=== PATIENT | male | born 1970 | race Caucasian/White ===

== ENCOUNTER 2020-09-02 00:07 | Observation (INO) | payer BC, SELFPAY ==
[2020-09-02 00:05] VITALS: BP 124/69; PULSE 95; RESP 18; TEMP 37.2; O2SAT 96
--- NOTE | 2020-09-02 00:27 | PC.NURSE ---
this pt called jose g from [facility] hospice. she states that they don't have any inpatient contracts with any facility around here. they state since doctor is interested in admitting pt, they would have to d/c pt from hospice. notified.
[2020-09-02 00:44] VITALS: BP 127/77; PULSE 75; RESP 18; O2SAT 95
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
[2020-09-02 02:21] VITALS: BP 110/64; PULSE 58; RESP 12; O2SAT 94
[2020-09-02 02:40] VITALS: BP 126/67; PULSE 66; RESP 18; TEMP 36.6; O2SAT 100
[2020-09-02] MEDS: WATER, STERILE FOR INJECTION 10 ML VIAL XX (05:06)
[2020-09-02] MEDS: OLANZapine 10 MG INJ VIAL IM (05:06)
[2020-09-02] MEDS: LORazepam INJ (*CRX) 2 MG/ML VIAL IV PUSH ×2 (05:30→17:58)
[2020-09-02] MEDS: MORPHINE SULFATE ORAL CONC SOL (*CRX) 10 MG/0.5 ML SYRINGE 20 MG PO (05:33)
--- NOTE | 2020-09-02 06:04 | ADMGEN ---
This patient, Benitez Menjivar, was admitted to 2 Medical Room 241-01 @ 0235 09/02/2020. Patient/family oriented to hospital policies and general routines including ID bracelet, bed and alarms, visiting hours, pain management, procedures, bathroom and other care routines, personal items, smoking policy, room service/diet, and visiting hours. Information on how to activate the Rapid Response Team has been discussed. Patient/Family are encouraged to report perceived risks to care and to ask questions if they do not understand what they are told or what they should do.
--- NOTE | 2020-09-02 06:17 | PC.NURSE ---
0530 code purple called due to pt agitation, climbing out of bed, combative. orders to start IV access and give Ativan 2mg IVP
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
[2020-09-02 09:56] VITALS: O2SAT 96
--- NOTE | 2020-09-02 11:21 | PM.IMPN ---
Progress Note: A&P Assessment and Plan (1) Aggressive behavior: Code(s): R46.89 - Other symptoms and signs involving appearance and behavior Status: Acute Assessment and Plan: Likely due to pain, advance cancer and brain Mets -the patient is doing well after receiving 10 mg of Zyprexa IM as well as Ativan and pain medications -his fentanyl patch was increased to 100 mcg, oral Ativan increased to 2 mg, and his oxycodone was continued on admission -since he did well with the Zyprexa, I am going to add Haldol to his nightly regimen to help sustain a calm and comfortable mood -the patient's family would like to switch hospice companies. At 1st they thought about placement but said if we can get his mood and aggression under control, they would be happy to take him -will adjust medications as needed -await hospice recommendations (2) Colon cancer metastasized to multiple sites: Code(s): C18.9 - Malignant neoplasm of colon, unspecified Status: Acute Assessment and Plan: Chronic and on hospice (3) Encounter for palliative care: Code(s): Z51.5 - Encounter for palliative care Status: Acute Assessment and Plan: Adjusting medication Time Spent With Patient Time with patient: 25 - 35 minutes Subjective Date/time seen: 09/02/20 11:21 Interval history: Pt is a 49-year-old male here for metastatic colon cancer and agitation. Patient was seen this morning and he was resting comfortably. He would awaken easily but was somnolent and would go right back to sleep. He stated he was not in any pain. Review of Systems Review of Systems: All systems reviewed & are unremarkable except as noted in HPI and below Exam Narrative: Exam Narrative: General: Chronically ill underweight patient resting in bed in no acute distress HEENT: normocephalic Neck: supple Neuro: Alert but would not answer my orientation questions due to somnolence CV:RRR Resp:CTA Abd: Soft, non distended. No pain to palpation. Positive bowel sounds Extremities: No swelling, erythema, or pain to palpation. Objective Data Vital Signs Vital Signs: Vital Signs - 24 hr 09/02/20 00:05 09/02/20 00:44 09/02/20 02:21 Temperature 99.0 F Pulse Rate 95 75 58 L Respiratory Rate 18 18 12 Blood Pressure 124/69 127/77 110/64 Pulse Oximetry 96 95 94 09/02/20 02:40 09/02/20 09:56 Temperature 97.9 F Pulse Rate 66 Respiratory Rate 18 Blood Pressure 126/67 Pulse Oximetry 100 96 Intake/Output Intake/Output: Intake & Output 08/30/20 08/31/20 09/01/20 09/02/20 23:59 23:59 23:59 23:59 Intake Total 0 Balance 0 Meds/Results Medications: Active Medications Generic Name Dose Route Start Last Admin Trade Name Freq PRN Reason Stop Dose Admin Fentanyl 100 mcg 09/02/20 06:00 09/02/20 06:19 Fentanyl (*Crx) 100 Mcg Patch TRANSDERM 100 mcg Q72H TROY Administration Haloperidol 5 mg 09/02/20 21:00 Haloperidol 5 Mg Tablet PO HS TROY Lorazepam 2 mg 09/02/20 05:44 09/02/20 05:30 Lorazepam Inj (*Crx) 2 Mg/Ml Vial IV PUSH 2 mg Q1HR PRN Administration Agitation Lorazepam 2 mg 09/02/20 09:00 Lorazepam (*Crx) 1 Mg Tablet PO QID TROY Morphine Sulfate 20 mg 09/02/20 04:22 09/02/20 05:33 Morphine Sulfate Oral Conc Tami (*Crx) 10 Mg/0.5 Ml Syringe PO 10/02/20 04:23 20 mg Q1HR PRN Administration Pain Rated 7-10 Olanzapine 5 mg 09/02/20 11:19 Olanzapine 10 Mg Inj Vial IM Q6H PRN Agitation Oxycodone HCl 60 mg 09/02/20 09:00 Oxycodone Hcl (*Crx) 20 Mg Tab Sr 12hr PO BID [facility] Quality VTE Prophylaxis VTE prophylaxis: mechanical ordered
[2020-09-02] MEDS: oxyCODONE HCL (*CRX) 20 MG TAB SR 12HR 60 MG PO (11:49)
[2020-09-02 13:48] VITALS: BP 102/58; PULSE 62; RESP 10; TEMP 36.4; O2SAT 97
[2020-09-02] MEDS: OLANZapine 10 MG INJ VIAL 5 MG IM (17:39)
--- NOTE | 2020-09-02 18:52 | PC.NURSE ---
Code purple called, medication given per OCT. notified.
--- NOTE | 2020-09-03 06:41 | PM.DS ---
DS: Admitting Diagnosis Admitting Diagnosis Admitting Diagnosis: uncontrolled agitation with terminal cancer DS: Discharge Diagnosis Discharge Diagnosis (1) Aggressive behavior: Code(s): R46.89 - Other symptoms and signs involving appearance and behavior Status: Acute Assessment and Plan: Likely due to pain, advance cancer and brain Mets -the patient did well after receiving 10 mg of Zyprexa IM as well as Ativan and pain medications earlier in the day -Later in the day he started having hallucinations and aggregation again -He qualified for inpatient hospice and was discharged to hospice. (2) Colon cancer metastasized to multiple sites: Code(s): C18.9 - Malignant neoplasm of colon, unspecified Status: Acute Assessment and Plan: Chronic and on hospice (3) Encounter for palliative care: Code(s): Z51.5 - Encounter for palliative care Status: Acute Assessment and Plan: Adjusting medication DS: Summary Hospital Course Hospital Course: Patient is a 49 year old male here for agitation and behavioral disturbances associated with terminal colon cancer who was admitted to the hospitalist service for medication adjustments who initially did well but then started being combative and hallucinating again. [facility] came and evaluated the patient and made him GIP status and going forward will facilitate care and will make further medication adjustments. Status at Discharge Overall status at discharge: patient is not back to baseline Time Spent with Patient Time attestation: Total time spent providing and/or coordinating discharge services:32 min Time spent: Greater than 30 minutes Exam Narrative: Exam Narrative: General: Chronically ill underweight patient resting in bed in no acute distress HEENT: normocephalic Neck: supple Neuro: Alert but would not answer my orientation questions due to somnolence CV:RRR Resp:CTA Abd: Soft, non distended. No pain to palpation. Positive bowel sounds Extremities: No swelling, erythema, or pain to palpation. Discharge Plan Discharge Discharging Clinician: Marco Dumont Patient Disposition: Hospice - Medical Facility Activity: other - see discharge instructions Diet: as tolerated Discharge Instructions: Discharge to inpatient hospice service. May be up with assist as tolerated. Stand Alone Forms: General Discharge Information Discharge Medications: Discontinued haloperidol 0.5 mg tablet 0.5 mg PO BID PRN (Reason: Anxiety) RF: 0 morphine concentrate 100 mg/5 mL (20 mg/mL) solution 10 - 20 mg PO Q3-4H PRN (Reason: Pain) RF: 0 lorazepam 1 mg tablet 1 mg PO QID RF: 0 fentanyl [Duragesic] 75 mcg/hr patch 72 hour 75 mcg transdermal Q72H RF: 0 oxycodone [OxyContin] 30 mg tablet,oral only,ext.rel.12 hr 30 mg PO BID RF: 0 Date of admission: 09/02/20 01:13 Primary Care Provider: UNKNOWN,DOCTOR Admitting Provider: Roberto Dumont Attending physician on admission: Chiara Anthony Condition: Stable Quality VTE Prophylaxis VTE prophylaxis: mechanical ordered
== END 2020-09-02 18:03 | disposition hospice, inpatient (51) ==
LOC: ANHED 01:03 → ANH2MED 01:55
PROVIDERS: Admitting Provider Family Medicine; Emergency Provider Emergency Medicine; Visit Provider Internal Medicine
DX: R46.89 Other symptoms and signs involving appearance and behavior (principal); C18.9 Malignant neoplasm of colon, unspecified; C78.7 Secondary malignant neoplasm of liver and intrahepatic bile duct; C79.31 Secondary malignant neoplasm of brain; R45.1 Restlessness and agitation
CPT/HCPCS: 96372; 96374; 96376; 99285; A9270; G0378; J2060

== ENCOUNTER 2020-09-02 18:04 | HOS | payer OTHER, SELFPAY ==
--- NOTE | 2020-09-02 18:10 | PM.IMHP ---
H&P: HPI History of Present Illness Date/Time: 09/02/20 17:00 Chief Complaint: uncontrolled aggressive behavior Narrative: Benitez Menjivar is a 49 year old male with widely metastatic colon cancer who was exhausted all of his therapeutic options. He was on SS and hospice and was admitted to the hospital because of uncontrolled behaviors. The last few weeks he has had difficulty with behaviors at about 4:00 a.m.. He has become increasingly violent. He has a loose in eating. He sees spiders frequently everywhere when there are none. 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 He slept most of the day. However he is awakening and very agitated. He sees spiders everywhere. He denied pain. His current pain regimen includes OxyContin 60 mg twice daily, Roxanol 20 mg every hour as needed, Duragesic 75 mcg patch every 3 days. He also takes Ativan 1 mg 4 times daily. His spouse told staff that Haldol causes him to be more agitated. However he was given only a low-dose at home, 0.5 mg. Review of Systems Review of Systems: ROS unobtainable: Yes unobtainable due to medical condition PMFSH Past Medical History Medical History Colon cancer metastasized to multiple sites Surgical History Surgical History Surgical history unknown Family History Family History Other Unknown family medical history Social History Social History Smoking status: Never smoker Alcohol intake: unknown Substance use: unknown Substance use type: unknown Additional living arrangements comments: Patient lives at home with his . Gender identity (if verbalized by the patient): Male Spiritual care concerns: No Meds Home Medications and Allergies Home Medications Medication Instructions Recorded Confirmed Type fentanyl [Duragesic] 75 mcg TRANSDERMAL Q72H 09/02/20 09/02/20 History haloperidol 0.5 mg PO BID PRN 09/02/20 09/02/20 History lorazepam 1 mg PO QID 09/02/20 09/02/20 History morphine concentrate 10 - 20 mg PO Q3-4H PRN 09/02/20 09/02/20 History oxycodone [OxyContin] 30 mg PO BID 09/02/20 09/02/20 History Allergies Allergy/AdvReac Type Severity Reaction Status Date / Time No Known Allergies Allergy Unverified 12/20/18 22:36 Exam Narrative: Exam Narrative: HEENT: EOMI, PERRL, sclerae nonicteric, pharyngeal mucosa pink and intact NECK: No JVD CHEST: Clear to auscultation. Normal effort. HEART: NL S1/S2, regular, no murmur ABDOMEN: BS+, soft, nontender, no mass, no bruits EXTREMITIES: No cyanosis, edema, or clubbing NEUROLOGIC: CN intact and symmetric to inspection. MUSCULOSKELETAL: Tone and strength symmetric. PSYCH: Alert. Oriented to person. Agitated and restless. Trying to swat spiders off of a wheelchair. Assessment and Plan Assessment and plan (1) Palliative care by specialist: Code(s): Z51.5 - Encounter for palliative care Status: Acute Assessment and Plan: meets general inpatient criteria for hospice due to uncontrolled delirium with agitation and psychotic features, including hallucinations and paranoia dependent upon his use of p.r.n. medication, his current regimen provides in the neighborhood of between 400 and 800 morphine equivalents daily as his high-dose and multiple narcotics may be contributing to his delirium, will transition to IV morphine at 4 milligrams/hour chlorpromazine 100 mg at bedtime routinely and 25 mg IM every 6 hours as needed for agitation Depakote ER 500mg every 12 hours p.r.n. IV lorazepam for anxiety bowel regimen (2) Delirium: Code(s): R41.0 - Disorientation, unspecified Status: Acute Assessment and Plan: Hyperactive with psychotic features, including paranoia and hallucinat
[2020-09-02] MEDS: MORPHINE SULFATE INJ (*CRX) 50 MG in SODIUM CHLORIDE 0.9% IV 95 ML 8 MG IV CONT (19:35)
[2020-09-02 20:00] VITALS: BP 104/59; PULSE 72; RESP 16; TEMP 36.8; O2SAT 98
[2020-09-02] MEDS: DIVALPROEX SODIUM ER 500 MG TAB PO (21:14)
[2020-09-02] MEDS: SENNA/DOCUSATE SODIUM TABLET 2 TAB PO (21:14)
[2020-09-02] MEDS: chlorproMAZINE HCL 25 MG TABLET 50 MG PO (21:14)
[2020-09-02] MEDS: LORazepam INJ (*CRX) 2 MG/ML VIAL 1 MG IV PUSH (21:39)
[2020-09-03] MEDS: MORPHINE SULFATE INJ (*CRX) 50 MG in SODIUM CHLORIDE 0.9% IV 95 ML 8 MG IV CONT ×2 (06:53→19:11)
[2020-09-03 08:00] VITALS: BP 95/60; PULSE 104; RESP 18; TEMP 36.8; O2SAT 94
[2020-09-03 08:50] VITALS: PULSE 72; RESP 16; O2SAT 98
[2020-09-03] MEDS: LORazepam INJ (*CRX) 2 MG/ML VIAL 1 MG IV PUSH ×5 (10:44→22:38)
[2020-09-03] MEDS: MORPHINE SULFATE (*CRX) 4 MG/ML INJ IV PUSH ×3 (10:57→16:56)
[2020-09-03] MEDS: chlorproMAZINE HCL INJ 50 MG/2 ML AMP 25 MG IM ×2 (12:08→18:49)
--- NOTE | 2020-09-03 18:33 | PM.IMPN ---
Progress Note: A&P Assessment and Plan (1) Palliative care by specialist: Code(s): Z51.5 - Encounter for palliative care Status: Acute Assessment and Plan: meets general inpatient criteria for hospice due to uncontrolled delirium with agitation and psychotic features, including hallucinations and paranoia dependent upon his use of p.r.n. medication, his current regimen provides in the neighborhood of between 400 and 800 morphine equivalents daily as his high-dose and multiple narcotics might have been contributing to his delirium Doing as well with analgesia on morphine 4mg/hr chlorpromazine 50mg q 12 hrs routinely and 25 mg IM every 6 hours as needed for agitation Depacon 2500mg every 6 hours p.r.n. IV lorazepam for anxiety bowel regimen Discussed at length with spouse at bedside (2) Delirium: Code(s): R41.0 - Disorientation, unspecified Status: Acute Assessment and Plan: Hyperactive with psychotic features, including paranoia and hallucinations (3) Colon cancer metastasized to multiple sites: Code(s): C18.9 - Malignant neoplasm of colon, unspecified Status: Acute Assessment and Plan: he has exhausted his therapeutic options and his family wishes to continue hospice care Subjective Date/time seen: 09/03/20 18:33 Interval history: Admitted to inpatient hospice 09/02 due to uncontrolled agitation and hallucinations related to metastatic colon cancer. 09/03: Agitated this AM, resolved with IM chlorpromazine, IV lorazepam and morphine. Agitated this PM around 5 and calmed with IV lorazepam. Refused PO meds. Review of Systems Review of Systems: ROS unobtainable: Yes unobtainable due to medical condition Exam Narrative: Exam Narrative: HEENT: normocephalic NECK: No JVD CHEST: Clear to auscultation. Normal effort. HEART: NL S1/S2, regular, no murmur ABDOMEN: BS+, soft, nontender, no mass, no bruits EXTREMITIES: No cyanosis, edema, or clubbing NEUROLOGIC: CN intact and symmetric to inspection. MUSCULOSKELETAL: Tone and strength symmetric. PSYCH: Sleeping soundly. Objective Data Vital Signs Vital Signs: Vital Signs - 24 hr 09/02/20 20:00 09/03/20 08:00 09/03/20 08:50 Temperature 98.3 F 98.3 F Pulse Rate 72 104 H 72 Respiratory Rate 16 18 16 Blood Pressure 104/59 L 95/60 L Pulse Oximetry 98 94 98 Intake/Output Intake/Output: Intake & Output 08/31/20 09/01/20 09/02/20 09/03/20 23:59 23:59 23:59 23:59 Intake Total 100 Balance 100 Meds/Results Medications: Active Medications Generic Name Dose Route Start Last Admin Trade Name Freq PRN Reason Stop Dose Admin Bisacodyl 10 mg 09/02/20 18:32 Bisacodyl 10 Mg Suppository RECTAL QAM PRN Constipation Chlorpromazine HCl 25 mg 09/02/20 18:34 09/03/20 12:08 Chlorpromazine Hcl Inj 50 Mg/2 Ml Amp IM 25 mg Q6H PRN Administration Agitation Chlorpromazine HCl 50 mg 09/03/20 21:00 Chlorpromazine Hcl Inj 50 Mg/2 Ml Amp IM Q12H TROY Glycopyrrolate 0.1 mg 09/02/20 18:29 Glycopyrrolate Inj (*Sp) 0.2 Mg/Ml Vial IV PUSH Q4H PRN Nausea Morphine Sulfate 50 mg/ Sodium 100 mls @ 8 mls/hr 09/02/20 19:00 09/03/20 06:53 Chloride IV CONT 4 mg/hr .[id number] TROY 8 mls/hr Administration 4 MG/HR Valproate Sodium 250 mg/ 102.5 mls @ 100 mls/hr 09/04/20 00:00 Dextrose IVPB Q6HR TROY Lorazepam 1 mg 09/02/20 18:27 09/03/20 16:56 Lorazepam Inj (*Crx) 2 Mg/Ml Vial IV PUSH 1 mg Q2H PRN Administration Anxiety Morphine Sulfate 4 mg 09/02/20 18:21 09/03/20 16:56 Morphine Sulfate (*Crx) 4 Mg/Ml Inj IV PUSH 4 mg Q2H PRN Administration Pain Prochlorperazine Edisylate 10 mg 09/02/20 18:30 Prochlorperazine Edisylate 10 Mg/2 Ml Vial IV PUSH Q6H PRN Nausea And Vomiting Senna/Docusate Sodium 2 tab 09/02/20 21:00 09/02/20 21:14 Senna/Docusate Sodium Tablet PO 2 tab
[2020-09-03 20:00] VITALS: BP 112/62; PULSE 103; RESP 7; TEMP 37.1; O2SAT 97
[2020-09-03] MEDS: chlorproMAZINE HCL INJ 50 MG/2 ML AMP IM (20:32)
[2020-09-04] MEDS: chlorproMAZINE HCL INJ 50 MG/2 ML AMP 25 MG IM ×3 (00:15→20:42)
[2020-09-04] MEDS: LORazepam INJ (*CRX) 2 MG/ML VIAL 1 MG IV PUSH ×5 (05:59→21:07)
[2020-09-04] MEDS: MORPHINE SULFATE INJ (*CRX) 50 MG in SODIUM CHLORIDE 0.9% IV 95 ML 8 MG IV CONT (07:06)
[2020-09-04] MEDS: chlorproMAZINE HCL INJ 50 MG/2 ML AMP IM (08:08)
[2020-09-04 15:04] VITALS: BP 119/73; PULSE 111; RESP 16; TEMP 36.9; O2SAT 95
[2020-09-04] MEDS: MORPHINE SULFATE (*CRX) 4 MG/ML INJ IV PUSH ×5 (15:51→21:05)
[2020-09-04] MEDS: PROCHLORPERAZINE EDISYLATE 10 MG/2 ML VIAL IM (16:57)
[2020-09-04] MEDS: GLYCOPYRROLATE INJ (*SP) 0.2 MG/ML VIAL 0.1 MG IV PUSH (18:21)
--- NOTE | 2020-09-04 18:29 | PM.IMPN ---
Progress Note: A&P Assessment and Plan (1) Palliative care by specialist: Code(s): Z51.5 - Encounter for palliative care Status: Acute Assessment and Plan: meets general inpatient criteria for hospice due to uncontrolled delirium with agitation and psychotic features, including hallucinations and paranoia morphine to 6mg/hr chlorpromazine 100mg q 12 hrs routinely and 25 mg IM every 6 hours as needed for agitation Depacon 500mg every 6 hours Lorazepam 1mg IV q 6 hours scheduled p.r.n. IV lorazepam for anxiety bowel regimen Discussed at length with staffing analyst (2) Delirium: Code(s): R41.0 - Disorientation, unspecified Status: Acute Assessment and Plan: Hyperactive with psychotic features, including paranoia and hallucinations (3) Colon cancer metastasized to multiple sites: Code(s): C18.9 - Malignant neoplasm of colon, unspecified Status: Acute Assessment and Plan: he has exhausted his therapeutic options and his family wishes to continue hospice care Subjective Date/time seen: 09/04/20 18:29 Interval history: Admitted to inpatient hospice 09/02 due to uncontrolled agitation and hallucinations related to metastatic colon cancer. 09/04: Not eating or taking PO meds. Quiet through the night, then intermittent agitation today. Review of Systems Review of Systems: ROS unobtainable: Yes unobtainable due to medical condition Exam Narrative: Exam Narrative: HEENT: normocephalic NECK: No JVD CHEST: Clear to auscultation. Normal effort. HEART: NL S1/S2, regular, no murmur ABDOMEN: BS+, soft, nontender, no mass, no bruits EXTREMITIES: No cyanosis, edema, or clubbing NEUROLOGIC: CN intact and symmetric to inspection. MUSCULOSKELETAL: Tone and strength symmetric. PSYCH: Sleeping soundly. Objective Data Vital Signs Vital Signs: Vital Signs - 24 hr 09/03/20 20:00 09/04/20 15:04 Temperature 98.8 F 98.4 F Pulse Rate 103 H 111 H Respiratory Rate 7 L 16 Blood Pressure 112/62 119/73 Pulse Oximetry 97 95 Intake/Output Intake/Output: Intake & Output 09/01/20 09/02/20 09/03/20 09/04/20 23:59 23:59 23:59 23:59 Intake Total 200 407.5 Output Total 350 Balance 200 57.5 Meds/Results Medications: Active Medications Generic Name Dose Route Start Last Admin Trade Name Freq PRN Reason Stop Dose Admin Bisacodyl 10 mg 09/02/20 18:32 Bisacodyl 10 Mg Suppository RECTAL QAM PRN Constipation Chlorpromazine HCl 25 mg 09/02/20 18:34 09/04/20 16:39 Chlorpromazine Hcl Inj 50 Mg/2 Ml Amp IM 25 mg Q6H PRN Administration Agitation Chlorpromazine HCl 50 mg 09/03/20 21:00 09/04/20 08:08 Chlorpromazine Hcl Inj 50 Mg/2 Ml Amp IM 50 mg Q12H TROY Administration Glycopyrrolate 0.1 mg 09/02/20 18:29 09/04/20 18:21 Glycopyrrolate Inj (*Sp) 0.2 Mg/Ml Vial IV PUSH 0.1 mg Q4H PRN Administration Nausea Morphine Sulfate 50 mg/ Sodium 100 mls @ 12 mls/hr 09/02/20 19:00 09/04/20 17:04 Chloride IV CONT 6 mg/hr .Q8H20M TROY 12 mls/hr Infusion 6 MG/HR Valproate Sodium 250 mg/ 102.5 mls @ 100 mls/hr 09/04/20 00:00 09/04/20 17:41 Dextrose IVPB 100 mls/hr Q6HR TROY Administration Lorazepam 1 mg 09/02/20 18:27 09/04/20 17:49 Lorazepam Inj (*Crx) 2 Mg/Ml Vial IV PUSH 1 mg Q2H PRN Administration Anxiety Morphine Sulfate 4 mg 09/02/20 18:21 09/04/20 17:47 Morphine Sulfate (*Crx) 4 Mg/Ml Inj IV PUSH 4 mg Q2H PRN Administration Pain Prochlorperazine Edisylate 10 mg 09/02/20 18:30 Prochlorperazine Edisylate 10 Mg/2 Ml Vial IV PUSH Q6H PRN Nausea And Vomiting
[2020-09-04] MEDS: LORazepam INJ (*CRX) 2 MG/ML VIAL IV PUSH (18:43)
[2020-09-04] MEDS: MORPHINE SULFATE INJ (*CRX) 50 MG in SODIUM CHLORIDE 0.9% IV 95 ML 12 MG IV CONT (18:45)
[2020-09-04 20:00] VITALS: BP 100/64; PULSE 87; RESP 20; TEMP 37.2; O2SAT 97
[2020-09-05] MEDS: VALPROIC ACID INJ 500 MG in DEXTROSE 5% 100 ML 100 MG IVPB ×5 (01:06→23:34)
[2020-09-05] MEDS: LORazepam INJ (*CRX) 2 MG/ML VIAL 1 MG IV PUSH ×5 (01:06→23:33)
[2020-09-05] MEDS: MORPHINE SULFATE INJ (*CRX) 50 MG in SODIUM CHLORIDE 0.9% IV 95 ML 12 MG IV CONT ×3 (03:11→20:18)
[2020-09-05 05:18] VITALS: BP 128/68; PULSE 104; RESP 16; TEMP 37; O2SAT 45
[2020-09-05 11:15] VITALS: BP 85/53; PULSE 94; RESP 14; TEMP 37.7; O2SAT 48
[2020-09-05] MEDS: MORPHINE SULFATE (*CRX) 4 MG/ML INJ IV PUSH (11:44)
--- NOTE | 2020-09-05 17:20 | PM.IMPN ---
Progress Note: A&P Assessment and Plan (1) Palliative care by specialist: Code(s): Z51.5 - Encounter for palliative care Status: Acute Assessment and Plan: meets general inpatient criteria for hospice due to uncontrolled delirium with agitation and psychotic features, including hallucinations and paranoia morphine to 6mg/hr chlorpromazine 100mg q 12 hrs routinely and 25 mg IM every 6 hours as needed for agitation Depacon 500mg every 6 hours Lorazepam 1mg IV q 6 hours scheduled p.r.n. IV lorazepam for anxiety bowel regimen Discussed at length with support staff (2) Delirium: Code(s): R41.0 - Disorientation, unspecified Status: Acute Assessment and Plan: Hyperactive with psychotic features, including paranoia and hallucinations (3) Colon cancer metastasized to multiple sites: Code(s): C18.9 - Malignant neoplasm of colon, unspecified Status: Acute Assessment and Plan: he has exhausted his therapeutic options and his family wishes to continue hospice care Subjective Date/time seen: 09/05/20 17:20 Interval history: Admitted to inpatient hospice 09/02 due to uncontrolled agitation and hallucinations related to metastatic colon cancer. 09/05: Not eating or taking PO meds. Much less agitation today. Now sleeping soundly. Review of Systems Review of Systems: ROS unobtainable: Yes unobtainable due to medical condition Exam Narrative: Exam Narrative: HEENT: normocephalic NECK: No JVD CHEST: Clear to auscultation. Normal effort. HEART: NL S1/S2, regular, no murmur ABDOMEN: BS+, soft, nontender, no mass, no bruits EXTREMITIES: No cyanosis, edema, or clubbing NEUROLOGIC: CN intact and symmetric to inspection. MUSCULOSKELETAL: Tone and strength symmetric. PSYCH: Sleeping soundly. Objective Data Vital Signs Vital Signs: Vital Signs - 24 hr 09/04/20 20:00 09/05/20 05:18 09/05/20 11:15 Temperature 98.9 F 98.6 F 99.9 F H Pulse Rate 87 104 H 94 Respiratory Rate 20 16 14 Blood Pressure 100/64 128/68 85/53 L Pulse Oximetry 97 45 L 48 L Intake/Output Intake/Output: Intake & Output 09/02/20 09/03/20 09/04/20 09/05/20 23:59 23:59 23:59 23:59 Intake Total 200 610.0 515 Output Total 350 Balance 200 260.0 515 Meds/Results Medications: Active Medications Generic Name Dose Route Start Last Admin Trade Name Jevonq PRN Reason Stop Dose Admin Bisacodyl 10 mg 09/02/20 18:32 Bisacodyl 10 Mg Suppository RECTAL QAM PRN Constipation Chlorpromazine HCl 25 mg 09/02/20 18:34 09/04/20 16:39 Chlorpromazine Hcl Inj 50 Mg/2 Ml Amp IM 25 mg Q6H PRN Administration Agitation Chlorpromazine HCl 100 mg 09/05/20 06:00 09/05/20 07:22 Chlorpromazine Hcl Inj 50 Mg/2 Ml Amp IM Not Given Q12H TROY Glycopyrrolate 0.1 mg 09/02/20 18:29 09/04/20 18:21 Glycopyrrolate Inj (*Sp) 0.2 Mg/Ml Vial IV PUSH 0.1 mg Q4H PRN Administration Nausea Morphine Sulfate 50 mg/ Sodium 100 mls @ 12 mls/hr 09/02/20 19:00 09/05/20 11:43 Chloride IV CONT 6 mg/hr .Q8H20M TROY 12 mls/hr Administration 6 MG/HR Valproate Sodium 500 mg/ 105 mls @ 100 mls/hr 09/05/20 00:00 09/05/20 13:10 Dextrose IVPB Infused Q6HR TROY Infusion Lorazepam 1 mg 09/02/20 18:27 09/04/20 21:07 Lorazepam Inj (*Crx) 2 Mg/Ml Vial IV PUSH 1 mg Q2H PRN Administration Anxiety Lorazepam 1 mg 09/05/20 00:00 09/05/20 12:04 Lorazepam Inj (*Crx) 2 Mg/Ml Vial IV PUSH 1 mg Q6H TROY Administration Morphine Sulfate 4 mg 09/02/20 18:21 09/05/20 11:44 Morphine Sulfate (*Crx) 4 Mg/Ml Inj IV PUSH 4 mg Q2H PRN Administration Pain Prochlorperazine Edisylate 10 mg 09/02/20 18:30 Prochlorperazine Edisylate 10 Mg/2 Ml Vial IV PUSH Q6H PRN Nausea And Vomiting
[2020-09-05 20:00] VITALS: BP 74/43; PULSE 63; RESP 16; TEMP 36.6; O2SAT 78
[2020-09-06] MEDS: MORPHINE SULFATE INJ (*CRX) 50 MG in SODIUM CHLORIDE 0.9% IV 95 ML 12 MG IV CONT ×2 (04:25→12:46)
[2020-09-06] MEDS: VALPROIC ACID INJ 500 MG in DEXTROSE 5% 100 ML 100 MG IVPB ×3 (05:45→17:41)
[2020-09-06] MEDS: LORazepam INJ (*CRX) 2 MG/ML VIAL 1 MG IV PUSH ×3 (05:45→17:39)
[2020-09-06 06:00] VITALS: BP 79/48; PULSE 76; RESP 14; TEMP 36.5; O2SAT 42
[2020-09-06 09:29] VITALS: BP 98/44; PULSE 56
[2020-09-06] MEDS: MORPHINE SULFATE (*CRX) 4 MG/ML INJ IV PUSH ×2 (14:41→16:43)
--- NOTE | 2020-09-06 15:24 | PM.IMPN ---
Progress Note: A&P Assessment and Plan (1) Palliative care by specialist: Code(s): Z51.5 - Encounter for palliative care Status: Acute Assessment and Plan: meets general inpatient criteria for hospice due to uncontrolled delirium with agitation and psychotic features, including hallucinations and paranoia morphine to 6mg/hr chlorpromazine 100mg q 12 hrs routinely and 25 mg IM every 6 hours as needed for agitation Depacon 500mg every 6 hours Lorazepam 1mg IV q 6 hours scheduled p.r.n. IV lorazepam for anxiety bowel regimen Discussed at length with spouse and mother at bedside (2) Delirium: Code(s): R41.0 - Disorientation, unspecified Status: Acute Assessment and Plan: Hyperactive with psychotic features, including paranoia and hallucinations (3) Colon cancer metastasized to multiple sites: Code(s): C18.9 - Malignant neoplasm of colon, unspecified Status: Acute Assessment and Plan: he has exhausted his therapeutic options and his family wishes to continue hospice care Subjective Date/time seen: 09/06/20 11:45 Interval history: Admitted to inpatient hospice 09/02 due to uncontrolled agitation and hallucinations related to metastatic colon cancer. 09/06: Not eating or taking PO meds. Today sleeping soundly. Review of Systems Review of Systems: ROS unobtainable: Yes unobtainable due to medical condition Exam Narrative: Exam Narrative: HEENT: normocephalic NECK: No JVD CHEST: Clear to auscultation. Normal effort. HEART: NL S1/S2, regular, no murmur ABDOMEN: BS+, soft, nontender, no mass, no bruits EXTREMITIES: No cyanosis, edema, or clubbing NEUROLOGIC: CN intact and symmetric to inspection. MUSCULOSKELETAL: Tone and strength symmetric. PSYCH: Sleeping soundly. Objective Data Vital Signs Vital Signs: Vital Signs - 24 hr 09/05/20 20:00 09/06/20 06:00 09/06/20 09:29 Temperature 97.9 F 97.7 F Pulse Rate 63 76 56 L Respiratory Rate 16 14 Blood Pressure 74/43 L 79/48 L 98/44 L Pulse Oximetry 78 L 42 L Intake/Output Intake/Output: Intake & Output 09/03/20 09/04/20 09/05/20 09/06/20 23:59 23:59 23:59 23:59 Intake Total 200 610.0 615 515 Output Total 350 Balance 200 260.0 615 515 Meds/Results Medications: Active Medications Generic Name Dose Route Start Last Admin Trade Name Freq PRN Reason Stop Dose Admin Bisacodyl 10 mg 09/02/20 18:32 Bisacodyl 10 Mg Suppository RECTAL QAM PRN Constipation Chlorpromazine HCl 25 mg 09/02/20 18:34 09/04/20 16:39 Chlorpromazine Hcl Inj 50 Mg/2 Ml Amp IM 25 mg Q6H PRN Administration Agitation Chlorpromazine HCl 100 mg 09/05/20 06:00 09/06/20 05:43 Chlorpromazine Hcl Inj 50 Mg/2 Ml Amp IM Not Given Q12H TROY Glycopyrrolate 0.1 mg 09/02/20 18:29 09/04/20 18:21 Glycopyrrolate Inj (*Sp) 0.2 Mg/Ml Vial IV PUSH 0.1 mg Q4H PRN Administration Nausea Morphine Sulfate 50 mg/ Sodium 100 mls @ 12 mls/hr 09/02/20 19:00 09/06/20 12:46 Chloride IV CONT 6 mg/hr .Q8H20M TROY 12 mls/hr Administration 6 MG/HR Valproate Sodium 500 mg/ 105 mls @ 100 mls/hr 09/05/20 00:00 09/06/20 13:14 Dextrose IVPB Infused Q6HR TROY Infusion Lorazepam 1 mg 09/02/20 18:27 09/04/20 21:07 Lorazepam Inj (*Crx) 2 Mg/Ml Vial IV PUSH 1 mg Q2H PRN Administration Anxiety Lorazepam 1 mg 09/05/20 00:00 09/06/20 12:08 Lorazepam Inj (*Crx) 2 Mg/Ml Vial IV PUSH 1 mg Q6H TROY Administration Morphine Sulfate 4 mg 09/02/20 18:21 09/06/20 14:41 Morphine Sulfate (*Crx) 4 Mg/Ml Inj IV PUSH 4 mg Q2H PRN Administration Pain Prochlorperazine Edisylate 10 mg 09/02/20 18:30 Prochlorperazine Edisylate 10 Mg/2 Ml Vial IV PUSH Q6H PRN Nausea And Vomiting
[2020-09-06] MEDS: chlorproMAZINE HCL INJ 50 MG/2 ML AMP 100 MG IM (17:40)
--- NOTE | 2020-09-07 14:43 | PM.DDS ---
Discharge Sum: Prov Provider Primary care physician: UNKNOWN,DOCTOR Admitting provider: Marco Dumont MD Discharge Sum: Diag Contributing Factors (1) Colon cancer metastasized to multiple sites: (2) Delirium: Discharge Sum: Summary Date and Time Date of admission: 09/02/20 18:04 Summary Details: Mr. Menjivar was admitted to inpatient hospice due to uncontrolled pain and delirium. Medications were titrated to comfort and he peacefully with his spouse at [facility]. Additional Data Attending physician: Marco Dumont MD
== END 2020-09-06 19:20 | disposition expired | DRG 951 ==
PROVIDERS: Admitting Provider Internal Medicine; Visit Provider Internal Medicine
DX: Z51.5 Encounter for palliative care (principal); C18.9 Malignant neoplasm of colon, unspecified; C79.9 Secondary malignant neoplasm of unspecified site; R44.2 Other hallucinations; R41.0 Disorientation, unspecified; R45.1 Restlessness and agitation; F41.9 Anxiety disorder, unspecified
CPT/HCPCS: 96372; 96374; 96376; 99285; A9270; G0378; J0780; J2060; J2270; J3230